=== PATIENT | male | born 1930 | race Caucasian/White ===

== ENCOUNTER 2018-02-06 15:51 | Emergency (ER) | payer MEDICARE ==
[2018-02-06] MEDS ORDERED: Sodium Chloride 0.45% 1,000 ML ONE (16:11)
[2018-02-06 16:34] LABS: #Lymphocytes 1.1 thou/uL (1.20-3.40); #Monocytes 0.6 thou/uL (0.11-0.59); #Neutrophils 8.3 thou/uL (1.40-6.50); %Basophils 0.3 % (0.0-1.0); %Eosinophils 0.1 % (0.0-10.0); %Lymphocytes 10.6 % (21.0-51.0); %Monocytes 6.1 % (0.0-10.0); Hemoglobin 11.2 g/dL (14.0-18.0); Mean Corpuscular HGB CONC 32.3 g/dL (32.0-36.0); Mean Corpuscular Hemoglobin 30.2 pg (27.0-31.0); Mean Corpuscular Volume 93.6 fL (78.0-98.0); Mean Platelet Volume 6.2 fL (7.4-10.4); Platelet Count 331 thou/uL (130-400); RBC Distribution Width 13.9 % (11.5-14.5); Red Blood Cell (RBC) Count 3.72 mill/uL (4.70-6.10)
[2018-02-06 16:37] LABS: INR-International Normal Ratio 1.1; Prothrombin Time 14.2 SEC (12.0-14.7)
[2018-02-06 16:39] LABS: Bilirubin Small (Negative); Blood, Urine Trace (Negative); Glucose, Urine (Dipstick) Negative (Negative); Leukocyte Negative (Negative); Nitrite Negative (Negative); Protein, Urine (Dipstick) 30 mg/dL (Neg-Trace); Specific Gravity, Urine 1.025 (1.005-1.030); pH, Urine 5.5 (5.0-9.0)
[2018-02-06 16:49] LABS: ALT (SGPT) 23 U/L (8-55); AST (SGOT) 48 U/L (5-34); Albumin 3.2 g/dL (3.4-4.8); Alkaline Phosphatase 108 U/L (40-150); Anion Gap 19 mmol/L (10-20); BUN (Urea Nitrogen) 29 mg/dL (8.4-25.7); Bilirubin, Total 2.2 mg/dL (0.2-1.2); CK (CPK) 472 U/L (30-200); Calc. Creatinine Clearance 0 mL/min (70-130); Calcium 8.8 mg/dL (7.8-10.44); Carbon Dioxide 19 mmol/L (23-31); Chloride 110 mmol/L (98-107); Estimated GFR-MDRD Greater than 90; Globulin 3.3 g/dL (2.4-3.5); Glucose 100 mg/dL (83-110); Potassium 4.4 mmol/L (3.5-5.1); Protein, Total 6.5 g/dL (5.8-8.1); Sodium 144 mmol/L (136-145)
[2018-02-06 16:49] LABS: Bacteria/HPF 1+ HPF (None Seen); Clarity Hazy (Clear); RBC/HPF 0-3 HPF (0-3); WBC/HPF 0-3 HPF (0-3)
[2018-02-06 16:50] LABS: Troponin I 0.038 ng/mL (< 0.028)
[2018-02-06 17:09] LABS: CKMB 7.2 ng/mL (0-6.6)
[2018-02-06] MEDS ORDERED: Lorazepam 2 MG/ML VIAL ONE ×2 (17:09→18:00)
[2018-02-06 17:10] LABS: Lipase Less than 4 U/L (8-78)
[2018-02-06] MEDS ORDERED: Iopamidol 370 76% 100 ML VIAL ONE (17:14)
--- NOTE | 2018-02-06 19:46 | CT ---
HEAD CT: 02/06/18 COMPARISON: 12/30/17 HISTORY: Altered mental status, fall yesterday. TECHNIQUE: Axial CT imaging at 5 mm intervals from vertex through skull base without contrast. Coronal and sagit gina reformatted imaging obtained. FINDINGS: Stable calvarial postoperative/posttraumatic changes noted on the left. There is a large portion of t he left frontal bone which is absent, unchanged. The visualized paranasal sinuses/mastoid air cells a re well aerated. There is atherosclerotic calcifications of the cavernous carotid arteries. There is no displaced calvarial fracture noted. There is atherosclerotic calcification of the distal left vertebral artery. There is diffuse cerebral volume loss with associated prominence of the CSF containing spaces, stable . There is stable encephalomalacia in the left frontal lobe and there is stable periventricular deep and subcortical white matter hypodensity, evidence of small vessel disease. There is abnormal hyperdensity of the right globe, stable as well. IMPRESSION: Stable chronic findings as detailed above. No acute findings seen. POS: [facility]
--- NOTE | 2018-02-06 19:52 | CT ---
CT CERVICAL SPINE 02/06/18 COMPARISON: None. HISTORY: Injury, trauma, pain. TECHNIQUE: Serial axial CT imaging at 2.5 mm intervals through the cervical spine without contrast. Coronal and sagittal reformatted imaging obtained. FINDINGS: Imaged paranasal sinuses and mastoid air cells are well aerated. There are soft tissue density in the external auditory canal on the left which may signify cerumen. The C1 ring is intact. The occipital condyles, the dens, and the C1-2 articulation demonstrate no acute findings. There is d egenerative change at the atlantoaxial interspace. There is multilevel mid cervical spine bilateral f acet uncovertebral osteophyte formation, left greater than right. There is no prevertebral soft tissue swelling seen. There is minimal anterolisthesis at C4-5 and C7-T1. There is mild concavity of the superior end plate of the T4 vertebral body suggesting an age indeterm inate mild T4 superior end plate fracture. No comparison imaging is available. Acuity of this finding could be best assessed via followup MRI if clinically warranted. No evidence for retropulsion in thi s region. Central loss of vertebral body height at T4 measures approximately 10%. The imaged lung apices demonstrate emphysematous change. Right greater than left. IMPRESSION: 1. No acute fracture or dislocation of cervical spine. 2. Cervical spine degenerative change. 3. Age indeterminate mild superior end plate fracture of T4. POS: [facility]
[2018-02-06] MEDS ORDERED: Sodium Chloride 0.9% 1,000 ML ONE (20:20)
[2018-02-06] MEDS ORDERED: Sodium Chloride 0.9% 250 ML 250 ML ONE (20:21)
[2018-02-06] MEDS ORDERED: Cefepime 1 GM VIAL ONE ×2 (20:22→20:23)
--- NOTE | 2018-02-06 20:47 | CT ---
CT OF CHEST CT OF ABDOMEN AND PELVIS CT THORACIC SPINE AND LUMBAR SPINE 02/06/18 COMPARISON: None. HISTORY: Injury, trauma, fall, pain. TECHNIQUE: Axial CT imaging at 5 mm intervals from the thoracic inlet through the pubic symphysis with IV contra st. Coronal and sagittal reformatted imaging of chest, abdomen, pelvis, thoracic spine and lumbar spi ne obtained. FINDINGS: CHEST CT: No axillary adenopathy. No mediastinal adenopathy. Mildly enlarged right hilar node seen on image 33 measuring 1.7 cm in short axis dimension. Motion artifact slightly limits detailed assessment of the lung parenchyma. There is no pneumothorax on either side. There is bilateral upper lobe emphysematous change. There is partial consolidation involving the posterior aspect of the right lower lobe from axial imag e 32 through axial image 45. There is a focal area of mass-like opacity within the medial aspect of the left lower lobe. There are internal foci of gas within this focal area of mass-like opacity. This abnormality measures 6.8 cm A P dimension x 6.6 cm in transverse dimension. This could represent a necrotic neoplastic mass lesion within the left lower lobe and/or necrotizing pneumonia. This abnormality is distal to a completely o bliterated bronchus supplying left lower lobe. Motion artifact limits detailed assessment of the ribs bilaterally. No obvious displaced rib fracture is seen on either side. CT OF ABDOMEN AND PELVIS: No free intraperitoneal air. Motion artifact limits detailed assessment of the abdomen and pelvis. Th e liver, spleen, and gallbladder demonstrate no acute findings. There is fatty atrophy of the pancrea s. Adrenal glands and kidneys demonstrate no acute findings. There are scattered hypodensities within both kidneys, too small to characterize. Calcification in lower pole of left kidney may represent a subcentimeter cortical calcification or a subcentimeter nonobstructing stone. Motion limits assessment in the region of the proximal femora/femoral necks. There is soft tissue pro minence of the buttock musculature on the right, particularly along the inferior and lateral margin, which may signify soft tissue hematoma. The prostate gland is enlarged, measuring 8.2 cm in transverse dimension. The rectum is expanded and filled with stool. This may signify fecal impaction. Motion limited assessment of the bowel without oral contrast is grossly unremarkable. There is extensive atherosclerotic calcification of the abdominal aorta and its branches. Vascular st ructures appear patent. No lymphadenopathy is seen. Review of the extraspinal osseous structures of t he abdomen/pelvis demonstrate diffuse osteopenia. No displaced pelvic fracture. No widening of sacroi liac joints or pubic symphysis. No discrete sacral fracture. THORACIC SPINE: Age indeterminate mild superior plate fracture of T4 with approximately 10% loss of vertebral body he ight. No thoracic spine anterolisthesis or retrolisthesis. T1 through T3 vertebral bodies demonstrate normal height. No evidence for vertebral body height loss noted at T5, T6, T7, T8, T9, T10, or T11. There is minimal anterior wedging of T12 which may be physiologic in nature or represent a mild age i ndeterminate anterior wedge compression fracture. There is minimal wedging of L1, L2 and L3 anteriorl y, which also could represent mild age indeterminate fractures or physiologic wedging. There is prom inent multilevel degenerative change noted within the lumbar spine with bilateral facet hypertrophy a s well as disc space narrowing and multilevel anterior osteophyte formation including L1-2, L2-3 and L3-4. IMPRESSION: 1. Mass-like area of pulmonary parenchymal opacity in the medial left lung base with internal ga s. This could represent a cavitary malignancy and/or necrotizing pneumonia. Pulmonary consultation is advised. 2. Mild adenopathy in right hilum, nonspecific. 3. Air space disease in right lower lobe which may signify infectious pneumonitis or aspiration. 4. Soft tissue prominence of the buttock musculature on the right may signify muscular hematoma. 5. Enlarged prostate gland. Rectum is expanded and filled with stool suggesting fecal impaction. 6. Age indeterminate mild superior end plate fracture of T4. 7. Mild wedging of multiple vertebral bodies of the lumbar spine and lower thoracic spine, likel y chronic in nature. Code T POS: [facility]
[2018-02-06] MEDS ORDERED: Aspirin 300 MG Suppository ONE (20:51)
== END 2018-02-06 21:40 | disposition short-term general hospital (02) ==
LOC: MADERS 15:51
DX: S30.0XXA Contusion of lower back and pelvis, initial encounter (principal); S20.222A Contusion of left back wall of thorax, initial encounter; S20.221A Contusion of right back wall of thorax, initial encounter; R91.8 Other nonspecific abnormal finding of lung field; F03.90 Unspecified dementia, unspecified severity, without behavioral disturbance, psychotic disturbance, mood disturbance, and anxiety; F41.9 Anxiety disorder, unspecified; E78.5 Hyperlipidemia, unspecified; I10 Essential (primary) hypertension; Z79.899 Other long term (current) drug therapy; W06.XXXA Fall from bed, initial encounter
CPT/HCPCS: 36415; 51701; 70450; 71260; 72125; 74177; 80053; 81003; 81015; 82550; 82553; 83690; 84484; 85025; 85610; 85730; 87040; 93005; 96361; 96365; 96367; 96375; 96376; J0692; J2060; J3370; J7050